=== PATIENT | male | born 1995 | race Caucasian/White ===

== ENCOUNTER 2016-04-14 14:17 | Emergency (ER) | payer OTHER ==
[~2016-04-14] VITALS: Ht 180.3 cm; Wt 83.9 kg
[2016-04-14 14:32] VITALS: BP 137/75
[2016-04-14] MEDS ORDERED: TETANUS-DIPTH-ACEL PERTUSSIS 0.5ML SYRG IM ONE (16:30)
[2016-04-14] MEDS ORDERED: HYDROcodone-ACET 10/325MG TAB PO ONE (16:30)
== END 2016-04-14 17:02 | disposition home or self-care (01) ==
LOC: ER 14:17
DX: S61.011A Laceration without foreign body of right thumb without damage to nail, initial encounter (principal); X58.XXXA Exposure to other specified factors, initial encounter; Y93.89 Activity, other specified; Y99.8 Other external cause status; Y92.89 Other specified places as the place of occurrence of the external cause
CPT/HCPCS: 90471; 90715

== ENCOUNTER → 2017-04-27 21:20 | Emergency (ER) | payer OTHER ==
[~2017-04-27] VITALS: Ht 177.8 cm; Wt 74.8 kg
[2017-04-27 21:54] LABS: Basophils # (auto) 0 uL; Eosinophils # (auto) 0.1 uL; Nucleated Red Blood Cells % 0.1 %; Red Cell Distribution Width 13.3 % (11.8-14.3)
[2017-04-27 21:55] LABS: Basophils % (auto) 0.4 % (0.0-2.0); Eosinophils % (auto) 0.9 % (0.0-7.0); Hematocrit 44.4 % (41.0-53.0); Hemoglobin 14.5 g/dL (13.5-17.5); Lymphocytes % (auto) 11.9 % (10.0-50.0); Mean Corpuscular Hemoglobin 26.8 pg (28.0-32.0); Mean Corpuscular Hgb Conc. 32.6 g/dL (32.0-36.0); Mean Corpuscular Volume 82.2 fL (80.0-100.0); Monocytes # (auto) 0.3 uL; Monocytes % (auto) 4.1 % (0.0-12.0); Neutrophils # (auto) 6.8 uL; Neutrophils % (auto) 82.7 % (37.0-80.0); Platelet Count (auto) 239 10^3/uL (140-450); White Blood Cell 8.3 10^3/uL (4.4-10.8)
[2017-04-27 22:09] LABS: INR 1.03 (0.9-1.15); Partial Thromboplastin Time 29.2 sec (22.64-33.71); Prothrombin Time 11.2 sec (9.37-12.3)
[2017-04-27 22:16] LABS: Alanine Aminotransferase 18 U/L (16-61); Albumin 4.3 g/dL (3.4-5.0); Alkaline Phosphatase 67 U/L (45-117); Anion Gap 7 (5-15); Aspartate Aminotransferase 17 U/L (15-37); BUN/Creatinine Ratio 15.1; Bilirubin, Total 0.2 mg/dL (0.2-1.0); Blood Urea Nitrogen 16 mg/dL (7-18); Calcium 8.6 mg/dL (8.5-10.1); Carbon Dioxide 27 mmol/L (21-32); Chloride 107 mmol/L (98-107); GFR African American 111 mL/min; GFR Non-African American 92 mL/min; Glucose 132 mg/dL (74-106); Potassium 3.6 mmol/L (3.5-5.1); Sodium 141 mmol/L (136-145); Total Protein 7.5 g/dL (6.4-8.2)
[2017-04-27 22:17] LABS: Alcohol, Urine < 3.0 mg/dL (0-5); Amphetamine Screen, Urine NEGATIVE (NEGATIVE); Barbiturate Scree,Urine NEGATIVE (NEGATIVE); Benzodiazephine Screen, Urine NEGATIVE (NEGATIVE); Cannabinoid Screen, Urine NEGATIVE (NEGATIVE); Cocaine Screen, Urine NEGATIVE (NEGATIVE); Opiate Scree,Urine NEGATIVE (NEGATIVE); Phencyclidine Screen, Urine NEGATIVE (NEGATIVE)
[2017-04-28 04:05] VITALS: BP 124/65
== END | disposition home or self-care (01) ==
LOC: ER 21:20
DX: R07.9 Chest pain, unspecified (principal)
CPT/HCPCS: 36415; 71045; 80053; 80307; 83880; 84484; 85025; 85610; 85730; 93005